=== PATIENT | male | born 1955 | race African-American/Black ===

== ENCOUNTER 2024-11-12 06:32 | Emergency (ER) | payer BC ==
[~2024-11-12] VITALS: Ht 171.4 cm; Wt 92.0 kg
[2024-11-12 06:44] VITALS: BP 128/96
[2024-11-12] MEDS ORDERED: BENZONATATE 200 MG/CAP PO ONE (06:55)
[2024-11-12] MEDS ORDERED: DEXAMETHASONE 2 MG/TAB TAB PO ONE (06:55)
[2024-11-12] MEDS ORDERED: METFORMIN500 M2 PO (06:57)
[2024-11-12] MEDS ORDERED: ASPIRINCHW 81MG PO (06:57)
[2024-11-12] MEDS ORDERED: MONTELUKAST SOD10 MG PO (06:58)
[2024-11-12] MEDS ORDERED: LISINOPRIL20 M1 PO (06:58)
[2024-11-12] MEDS ORDERED: OMEPRAZOLE DR40 MG PO (06:59)
[2024-11-12 07:00] VITALS: BP 126/90
[2024-11-12 07:30] VITALS: BP 136/88
[2024-11-12 08:02] VITALS: BP 155/94
[2024-11-12] MEDS ORDERED: AMOXICILLIN & POT CLAVULANATE 875 MG/TAB PO ONE (08:15)
[2024-11-12] MEDS ORDERED: OSELTAMIVIR PHOSPHATE 75 MG/TAB CAP PO ONE (08:15)
[2024-11-12] MEDS ORDERED: AZITHROMYCIN 250 MG/TAB PO ONE (08:15)
[2024-11-12] MEDS ORDERED: AMOX/K CLAV875 M1 PO (08:17)
[2024-11-12] MEDS ORDERED: TAM75CAP PO (08:17)
[2024-11-12] MEDS ORDERED: ZITHROMAX Z-PA250 MG PO (08:17)
[2024-11-12 08:27] VITALS: BP 155/94
== END 2024-11-12 08:27 | disposition home or self-care (01) | DRG 195 ==
LOC: ED 06:32
DX: J11.00 Influenza due to unidentified influenza virus with unspecified type of pneumonia (principal); I10 Essential (primary) hypertension; E11.9 Type 2 diabetes mellitus without complications; Z20.822 Contact with and (suspected) exposure to COVID-19; Z79.84 Long term (current) use of oral hypoglycemic drugs